=== PATIENT | male | born 1950 | race Caucasian/White ===

== ENCOUNTER 2021-01-20 08:30 | Day surgery (SDC) | payer OTHER ==
[~2021-01-20 08:30] MED LIST: Propofol 200 MG/20 ML SDV ONE
--- NOTE | 2021-01-20 09:07 | PCM.PREANE ---
Preanesthetic Assessment - Anesthesia/Transfusion/Family Hx Anesthesia History: Prior Anesthesia Without Reaction Transfusion History: No Prior Transfusion(s) - Review of Systems General: No Symptoms Pulmonary: No Symptoms, Other (smoker) Cardiovascular: No Symptoms Gastrointestinal: No Symptoms Neurological: No Symptoms Other: Reports: None - Physical Assessment Height: 5 ft 10 in Weight: 85.275 kg ASA Class: 2 Mental Status: Alert & Oriented x3 Airway Class: Mallampati = 3 Dentition: Reports: Normal Dentition, Implants Thyro-Mental Finger Breadths: 3 Mouth Opening Finger Breadths: 3 ROM/Head Extension: Full Lungs: Clear to Auscultation, Normal Respiratory Effort Cardiovascular: Regular Rate, Regular Rhythm - Allergies Allergies/Adverse Reactions: Allergies Allergy/AdvReac Type Severity Reaction Status Date / Time No Known Allergies Allergy Verified 01/14/21 08:29 - Acknowledgements Anesthesia Type Planned: General Anesthesia Pt an Appropriate Candidate for the Planned Anesthesia: Yes Alternatives and Risks of Anesthesia Discussed w Pt/Guardian: Yes Pt/Guardian Understands and Agrees with Anesthesia Plan: Yes PreAnesthesia Questionnaire HEENT History: Reports: Hard of Hearing, Other (See Below) Other HEENT History: reading glasses, keaton hearing aids, has dental implants Cardiovascular History: Reports: None Respiratory History: Reports: None Gastrointestinal History: Reports: Colon Polyp Genitourinary History: Reports: None Musculoskeletal History: Reports: Arthritis Neurological History: Reports: None Psychiatric History: Reports: None Endocrine/Metabolic History: Reports: None Hematologic History: Reports: None Immunologic History: Reports: None Oncologic (Cancer) History: Reports: None Dermatologic History: Reports: None - Past Surgical History Head Surgeries/Procedures: Reports: None HEENT Surgical History: Reports: LASIK Cardiovascular Surgical History: Reports: None Respiratory Surgical History: Reports: None GI Surgical History: Reports: Colonoscopy Male Surgical History: Reports: None Endocrine Surgical History: Reports: None Neurological Surgical History: Reports: None Musculoskeletal Surgical History: Reports: Arthroscopic Knee Oncologic Surgical History: Reports: None Dermatological Surgical History: Reports: None - SUBSTANCE USE Tobacco Use Status *Q: Current Some Day Tobacco User Tobacco Use Within Last Twelve Months: Cigars Days Per Week of Alcohol Use: 7 Number of Drinks Per Day: 2 Total Drinks Per Week: 14 Recreational Drug Use History: No - HOME MEDS Home Medications: Home Meds . [No Known Home Meds] 01/14/21 [History] - CURRENT (IN HOUSE) MEDS Current Meds: Current Medications Discontinued Medications Lidocaine HCl (Lidocaine 1% 5 Ml Sdv) Confirm Administered Dose 5 ml .ROUTE .STK-MED ONE Stop: 01/20/21 07:55 Propofol (Propofol 200 Mg/20 Ml Sdv) Confirm Administered Dose 600 mg .ROUTE .STK-MED ONE Stop: 01/20/21 07:56
[2021-01-20] MEDS ORDERED: Lactated Ringers 1,000 ML IV SCH (09:45)
--- NOTE | 2021-01-20 10:21 | PCM.OPNOTE ---
- General Post-Op/Procedure Note Date of Surgery/Procedure: 01/20/21 Operative Procedure(s): Colonoscopy and polypectomies and biopies Findings: Two colon polyps. diverticulosis Slightly irritated rectal mucosa. dictation number [id number] Primary Surgeon: Harvey De León Pathology: colon polyps rectal biopsies Complications: None Condition: Good
--- NOTE | 2021-01-20 10:28 | PCM.POSTAN ---
POST ANESTHESIA ASSESSMENT - MENTAL STATUS Mental Status: Alert, Oriented - VITAL SIGNS Vital Signs: Last Vital Signs Temp 35.7 C L 01/20/21 08:46 Pulse 62 01/20/21 08:46 Resp 15 01/20/21 08:46 BP 124/70 01/20/21 08:46 Pulse Ox 99 01/20/21 08:46 - RESPIRATORY Respiratory Status: Respiratory Rate WNL, Airway Patent, O2 Saturation Stable - CARDIOVASCULAR CV Status: Pulse Rate WNL, Blood Pressure Stable - GASTROINTESTINAL GI Status: No Symptoms - POST OP HYDRATION Hydration Status: Adequate & Stable
--- NOTE | 2021-01-20 10:28 | PCM48HPAN ---
Post Anesthesia Note - EVALUATION WITHIN 48HRS OF ANESTHETIC Vital Signs in Normal Range: Yes Patient Participated in Evaluation: Yes Respiratory Function Stable: Yes Airway Patent: Yes Cardiovascular Function Stable: Yes Hydration Status Stable: Yes Pain Control Satisfactory: Yes Nausea and Vomiting Control Satisfactory: Yes Mental Status Recovered: Yes Vital Signs: Last Vital Signs Temp 35.7 C L 01/20/21 08:46 Pulse 62 01/20/21 08:46 Resp 15 01/20/21 08:46 BP 124/70 01/20/21 08:46 Pulse Ox 99 01/20/21 08:46
--- NOTE | 2021-01-20 16:57 | OR ---
SURGEON: RUTHIE VILLEDA MD DATE OF PROCEDURE: 01/20/2021 PREOPERATIVE DIAGNOSIS: History of polyps. POSTOPERATIVE DIAGNOSES: 1. Diverticulosis. 2. Two colon polyps, one at 80 and one at 30 cm. 3. Slightly irritated rectal mucosa. PRIMARY SURGEON: Ruthie Villeda MD ANESTHESIA: With anesthesiologist. PROCEDURES PERFORMED: 1. Colonoscopy. 2. Cold biopsy polypectomy. 3. Cold biopsies. EXTENT OF THE COLONOSCOPY: To the cecum. BOWEL PREP: Very good. LIMITATIONS: None. 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 The patient denies any blood in stool. Denies any family history of colon cancer. PROCEDURE IN DETAIL: Physical exam was performed. The major risks and benefits associated with the procedure were explained to the patient in detail. The patient verbalized understanding and was in agreement with the same. The patient was then connected to the appropriate monitoring devices, and IV was started. EKG, pulse oximetry, blood pressure, and capnography were monitored throughout the entire procedure. Oxygen and sedation were provided by the anesthesiologist. The patient was placed in left lateral decubitus position. Sedation was began. After adequate sedation was achieved, digital rectal exam was performed. No rectal masses or polyps were felt. Now, a well-lubricated Olympus colonoscope was inserted into the rectum and advanced under direct visualization to the level of the cecum. The cecum was identified by both visual and anatomic landmarks. Photographs were taken of the cecal cap and terminal ileum. Scope was then slowly withdrawn in a circular fashion looking at the color, texture, anatomy, and integrity of mucosa from the cecum to the anal canal. The patient had some slight liquid stool which was suctioned and irrigated out for a good look at the mucosa. In the ascending colon at 80 cm past the ileocecal valve, the patient had a small polyp. This was removed with cold biopsy polypectomy. There was good hemostasis. The polyp looked to be completely removed. Scope was continued to be withdrawn. The patient did have some diverticulosis throughout his sigmoid colon. He had another small polyp, likely hyperplastic, at 30 cm. This was also removed with a cold biopsy polypectomy, again good hemostasis. Scope was continued to be withdrawn. In the rectal vault just above his hemorrhoidal tissue, the patient's mucosa did look a little irritated. This could likely be because of the prep, however, did do some random biopsies of this. Scope was retroflexed in the rectum. The scope was completely removed, and the procedure was terminated. ENDOSCOPIC DIAGNOSES: 1. Diverticulosis. 2. Two polyps, one at 80 and one at 30 cm. 3. Slightly irritated rectal mucosa. RECOMMENDATIONS: Followup colonoscopy will depend on pathology, but most likely will need another one in five years or sooner if develops signs and symptoms as change in bowel habits or blood in his stool. WILFRED / CESILIA /[id number]
== END 2021-01-20 11:05 | disposition home or self-care (01) ==
LOC: MW.SDS 08:30
PROVIDERS: ATTEND Surgery
DX: Z12.11 Encounter for screening for malignant neoplasm of colon (principal); D12.2 Benign neoplasm of ascending colon; D12.6 Benign neoplasm of colon, unspecified; K63.89 Other specified diseases of intestine; K57.30 Diverticulosis of large intestine without perforation or abscess without bleeding; K62.89 Other specified diseases of anus and rectum; E78.00 Pure hypercholesterolemia, unspecified; Z87.891 Personal history of nicotine dependence; Z01.812 Encounter for preprocedural laboratory examination; Z20.822 Contact with and (suspected) exposure to COVID-19; Z86.010 Personal history of colon polyps
CPT/HCPCS: 45380; 87635; 88305; J2704; J7120; 00811; 99100; U0002